=== PATIENT | female | born 1985 | race Caucasian/White ===

== ENCOUNTER → 2017-04-22 | Outpatient (CLI) | payer MEDICAID ==
[~2017-04-22] MED LIST: CIPRO 500MG TA500 MG PO; DEPO-PROVER150 MG/M2 IM; NORCO 325 MG-51 TAB PO
--- NOTE | 2017-04-22 17:28 | RADIOLOGY REPORT PS360 ---
US PREG COMP: INDICATION: 20 WK ANATOMY US ORDERING PHYSICIAN: Choco Bradshaw MD PATIENT AGE: 31 years TECHNIQUE: ultrasound transabdominal scanning. COMPARISON: No previous relevant studies. FINDINGS: Single viable intrauterine gestation. Cephalic position. Placenta: Posterior placenta grade 1. There is average amount fluid. The cervix appears satisfactory. Closed and measuring 4 cm in length. Complete survey performed and was unremarkable on the submitted images as in PACS. No discrete anomalies identified on survey imaging by technologist. Active fetus. Three-vessel cord with satisfactory umbilical cord insertion. 4- chamber heart noted. Survey of brain & ventricles. Face and neck survey unremarkable. The facial structures are not well seen due to fetus position. Diaphragm and chest views unremarkable. Abdomen: Both kidneys noted and unremarkable. Stomach noted and satisfactory. Spine: Survey of the spine satisfactory with no anomalies identified nor imaged. Both arms and legs noted. Amniotic Fluid: Adequate. Maternal adnexa: No significant findings. Measurements: Average ultrasound age 19 weeks 6 days. Gestational Age 20 weeks 1 day. Estimated due date by ultrasound age 1009/10/2017. Estimated weight 319 grams. BPD = 20 weeks 0 days OFD = 20 weeks 0 days HC = 19 weeks 2 days AC = 20 weeks 0 days FL = 20 weeks 0 days Heart Rate = 142 BPM Cerebellum = 19 weeks 4 days Humerus = 20 weeks 2 days HC/AC is 1.12. CI is 80%. FL/BPD is 69%. FL/AC is 22%. IMPRESSION: Single live fetus present in cephalic presentation with an average ultrasound age of 19 weeks 6 days. No obvious anomalies apparent. Please see above for detail
== END ==
LOC: RAD 14:16
DX: Z36 Encounter for antenatal screening of mother (principal)

== ENCOUNTER 2017-09-04 07:19 | Outpatient (CLI) | payer MEDICAID ==
[~2017-09-04] VITALS: Ht 162.6 cm; Wt 89.9 kg
[2017-09-04 07:36] VITALS: BP 123/91
[2017-09-04 08:16] LABS: URINE BILIRUBIN - DIPSTICK NEGATIVE (NEG); URINE BLOOD 1+ (NEG)
== END 2017-09-04 11:25 | disposition home or self-care (01) ==
LOC: OBOUT 07:19 → OB 07:19 → OBOUT 11:25
PROVIDERS: Nurse Practitioner Obstetrics & Gynecology
DX: O60.03 Preterm labor without delivery, third trimester (principal); Z3A.39 39 weeks gestation of pregnancy

== ENCOUNTER → 2017-10-05 | Outpatient (CLI) | payer MEDICAID ==
[2017-10-05 08:47] LABS: LYMPH # 1.8 K/mm3 (0.7-4.5); LYMPH % 27.3 % (10-50.0)
[2017-10-05 10:51] LABS: BUN 10 mg/dL (7-18)
[2017-10-05 11:00] LABS: GFR (ESTIMATED) 57 ML/MIN (59-)
== END ==
LOC: LAB 08:12
PROVIDERS: Nurse Practitioner Obstetrics & Gynecology
DX: Z30.09 Encounter for other general counseling and advice on contraception (principal); Z01.812 Encounter for preprocedural laboratory examination

== ENCOUNTER 2017-11-08 09:54 | Emergency (ER) | payer MEDICAID ==
[~2017-11-08] VITALS: Ht 162.6 cm; Wt 74.8 kg
--- NOTE | 2017-11-08 10:12 | Emergency Room Report ---
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 N Clinical Suspician of Infection? N Mental Status: 1 - Regular (Normal Baseline) Sepsis Risk:Low Sepsis Risk Have you (or family members/close friends) recently traveled outside the [place]? N If Yes, where/when: Have you had exposure to infectious disease within the past month? N TB? Other? Specify: Source patient, RN notes reviewed Exam Limitations no limitations Comment Sore throat, bilat. ear pain and productive cough since . Cardiac Chest Pain Chest pain indicative of cardiac No ALLERGIES Coded Allergies: No Known Allergies (10/09/17) History Medical History General CAD? No Angina: No ID: No Hypertension? No Hyperlipidemia? No CHF? No DVT? No PE? No COPD? No Asthma? No Anemia? No GERD? No Gastric ulcers? No GI Bleed? No Hernia? No Thyroid Problems? No Hypothyroidism? No CVA? No Seizures? No Diabetes? No UTI? No Stones? No GB Disease: No Hepatitis? No Cataracts? No Glaucoma? No MRSA? No TB? No Cancer? 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 Respiratory see HPI Physical Exam Vital Signs Vital Signs Date Time Temp Pulse Resp B/P Pulse O2 O2 Flow FiO2 Ox Delivery Rate 11/08 1001 99.0 90 18 124/95 99 General Appearance normal appearance, WD/WN, no apparent distress Ear, Nose, Throat pharyngeal erythema, Both TM's inflamed but no fluid levels seen by me Respiratory Status No: respiratory distress. Lung Sounds bilateral: normal breath sounds. Cardiovascular normal exam, regular rate/rhythm Neurologic alert, veneer sander II-XII nml as tested, normal exam Medical Decision Making LABS/Meds/Orders Pt receiving controlled substance in ED? No Results/Orders Laboratory Tests 11/08/17 1030: Influenza Type A Ag NOT DETECTED, Influenza Type B Ag NOT DETECTED Orders Procedure Date/time Status INFLUENZA A&B ANTIGENS 11/08 1020 Complete CULTURE, THROAT 11/08 1007 Active STREP SCREEN THROAT 11/08 1006 Complete Departure Departure Time of Disposition 1123 Disposition DC Home or Self Care(routine) Clinical Impression Primary Impression: BOM (bilateral otitis media) Qualifiers: Otitis media type: unspecified Qualified Code: H66.93 - Otitis media, unspecified, bilateral Condition STABLE Referrals Gelacio Jaimes MD (Family): 4 Days-Call Office Patient Instructions DI for Otitis Media (Middle Ear Infection)-Child, Ear Infections (Alternative Therapy), Middle Ear Infection Additional Instructions Take mediicine as directed and followup wiht PCP in 3 to 4 days to recheck ears Discharge Counseling Counseled pt/family regarding diagnosis, test results, medications/RX, home care, follow up needs Prescriptions Current Visit Scripts Amoxicillin (Amoxicillin 500MG) 500 MG PO TID #30 CAP ED Critical Care Critical Care No If Critical Care minutes are documented, the time involved in the performance of seperately reportable procedures was not counted toward critical care time documented. I directly delivered medical care to this critically ill and/or injured patient. Timely evaluation and treatment was necessary to address the significant organ system(s) dysfunction present in this patient. at 1125
--- NOTE | 2017-11-08 10:12 | Emergency Room Report ---
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 N Clinical Suspician of Infection? N Mental Status: 1 - Regular (Normal Baseline) Sepsis Risk:Low Sepsis Risk Have you (or family members/close friends) recently traveled outside the [place]? N If Yes, where/when: Have you had exposure to infectious disease within the past month? N TB? Other? Specify: Source patient, RN notes reviewed Exam Limitations no limitations Comment Sore throat, bilat. ear pain and productive cough since . Cardiac Chest Pain Chest pain indicative of cardiac No ALLERGIES Coded Allergies: No Known Allergies (10/09/17) History Medical History General CAD? No Angina: No KS: No Hypertension? No Hyperlipidemia? No CHF? No DVT? No PE? No COPD? No Asthma? No Anemia? No GERD? No Gastric ulcers? No GI Bleed? No Hernia? No Thyroid Problems? No Hypothyroidism? No CVA? No Seizures? No Diabetes? No UTI? No Stones? No GB Disease: No Hepatitis? No Cataracts? No Glaucoma? No MRSA? No TB? No Cancer? 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 Respiratory see HPI Physical Exam Vital Signs Vital Signs Date Time Temp Pulse Resp B/P Pulse O2 O2 Flow FiO2 Ox Delivery Rate 11/08 1001 99.0 90 18 124/95 99 General Appearance normal appearance, WD/WN, no apparent distress Ear, Nose, Throat pharyngeal erythema, Both TM's inflamed but no fluid levels seen by me Respiratory Status No: respiratory distress. Lung Sounds bilateral: normal breath sounds. 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 No Results/Orders Laboratory Tests 11/08/17 1030: Influenza Type A Ag NOT DETECTED, Influenza Type B Ag NOT DETECTED Orders Procedure Date/time Status INFLUENZA A&B ANTIGENS 11/08 1020 Complete CULTURE, THROAT 11/08 1007 Active STREP SCREEN THROAT 11/08 1006 Complete Departure Departure Time of Disposition 1123 Disposition DC Home or Self Care(routine) Clinical Impression Primary Impression: BOM (bilateral otitis media) Qualifiers: Otitis media type: unspecified Qualified Code: H66.93 - Otitis media, unspecified, bilateral Condition STABLE Referrals Gelacio Jaimes MD (Family): 4 Days-Call Office Patient Instructions DI for Otitis Media (Middle Ear Infection)-Child, Ear Infections (Alternative Therapy), Middle Ear Infection Additional Instructions Take mediicine as directed and followup wiht PCP in 3 to 4 days to recheck ears Discharge Counseling Counseled pt/family regarding diagnosis, test results, medications/RX, home care, follow up needs Prescriptions Current Visit Scripts Amoxicillin (Amoxicillin 500MG) 500 MG PO TID #30 CAP ED Critical Care Critical Care No If Critical Care minutes are documented, the time involved in the performance of seperately reportable procedures was not counted toward critical care time documented. I directly delivered medical care to this critically ill and/or injured patient. Timely evaluation and treatment was necessary to address the significant organ system(s) dysfunction present in this patient. at 1128
--- OUTSIDE RECORDS SUMMARY | 2017-11-08 10:26 | External Medical Summary Rpt | CCD ---
Demographics Preferred Language Romansh Marital Status Unknown Mandaen Affiliation Unknown Race Unknown Ethnic Group Unknown Author Author , MICA NINO Address Unknown Phone [email or web address] Care Team Providers Care Cna Instructor Name Role Phone [facility] Unavailable Unavailable [id number] # [phone], [facility] [id number] # [phone] Purpose Continuity of Care Document - 08-16-2010 through 2016 Medications Na ND Rx Da Fi Fi Am Da Di Ph RX Ph St me C No te ll ll ou ys ag ar # ys at rm s nt no ma ic us Or Da si cy ia de te s n re d 00 09 09 20 3 RI 85 CL Ac 60 -1 -1 .0 TE 03 AR ti 33 7- 7- 00 74 KE ve 88 20 20 AI 12 10 10 D DE 8 PH RE AR K MA J CY 03 93 8 # [phone]
--- OUTSIDE RECORDS SUMMARY | 2017-11-08 10:26 | External Medical Summary Rpt | CCD ---
Demographics Preferred Language German Marital Status Unknown Alevism Affiliation Unknown Race Unknown Ethnic Group Unknown Author Author , MICA NINO Address Unknown Phone Care Team Providers Care Incident Analyst Name Role Phone [facility] Unavailable Unavailable [phone], [facility] [phone] # [phone] Purpose Continuity of Care Document [...]
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
--- OUTSIDE RECORDS SUMMARY | 2017-11-08 10:26 | External Medical Summary Rpt | CCD ---
Author Author , MICA Organization [facility] Address Unknown Phone [email or web address] Immunization Name Date Rout CVX Reac Dose Comm Prov Is Faci e tion ent ider Refu lity Give sed n Tdap 10-1 115 999 Hist H149 No H149 , 0-20 oric Adso 12 al rbed Info rmat ion - Sour ce Unsp ecif ied Td 07-2 9 999 Hist H149 No H149 (joaquin 9-20 oric lt), 03 al Info adso rmat rbed ion - Sour ce Unsp ecif ied
--- OUTSIDE RECORDS SUMMARY | 2017-11-08 10:26 | External Medical Summary Rpt | CCD ---
Author Author , MICA Organization [facility] Address Unknown Phone [email or web address] Immunization Name Date Rout CVX Reac Dose [...]
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
[2017-11-08] MEDS ORDERED: AMOXICOT500 MG PO (11:27)
[2017-11-08 11:38] VITALS: BP 124/95
== END 2017-11-08 11:39 | disposition home or self-care (01) ==
LOC: ER 09:54
DX: H66.93 Otitis media, unspecified, bilateral (principal); J02.9 Acute pharyngitis, unspecified